=== PATIENT | female | born 1945 | race Caucasian/White ===

== ENCOUNTER 2018-10-28 18:30 | Inpatient (IN) ==
--- NOTE | 2018-10-28 19:06 | ED EKG INTERP ---
This chart was entered by Melida Jain Scribe, acting as scribe for Mayur Loo DO. EKG Interpretation - EKG Time of EKG reading by physician:: 18:51 EKG Read and Signed by:: Mayur Loo EKG Interpretation (*Must complete 3 of following elements*): Abnormal Rate: 75 Rhythm: Sinus w/ 1st degree AV block w/ occasional PVCs [place]: normal QRS: LVH (with repolarization abnormality), PVC's GA Interval: prolonged ST Wave: normal Attestation - Physician/ SANJUANA Attestation Patient care was provided by Advanced Practice Provider:: No The physician spent face to face time with patient:: Yes Advanced Practice Provider documentation review:: Supervising physician onsite and consulted in the evaluation and care of this patient. The physician did have a face to face encounter with the patient. This chart was documented by the indicated scribe, (Melida Jain Scribe) and accurately reflects the services I performed and decisions made by Eze garcia Thomas E., DO, as attested by the provider's signature.
[2018-10-28 19:11] LABS: BASO# 0.04 X1000 (0.0-0.2); BASO% 0.4 % (0.0-0.8); EOS# 0.07 X1000 (0.0-0.7); EOS% 0.7 % (0.0-10.0); HEMATOCRIT 42.1 % (37.0-47.0); HEMOGLOBIN 14.2 g/dL (12.0-16.0); LYMPH# 2.31 X1000 (1.2-3.4); LYMPH% 24.2 % (20.5-51.1); MCH 26.6 PG (27-31); MCHC 33.7 g/dL (33-37); MONO# 0.79 X1000 (0.11-0.59); MONO% 8.3 % (1.7-9.3); MPV 11.1 FL (7.4-10.4); NEUT# 6.32 X1000 (1.4-6.5); NEUT% 66.4 % (42.2-75.2); PLT 260 X1000 (130-400); RBC 5.33 XMIL (4.2-5.4); RDW 13.8 % (11.5-14.5); WBC 9.53 X1000 (4.8-10.8)
[2018-10-28 19:31] LABS: ALB/GLOB RATIO 1.2; ALBUMIN 4.6 g/dL (3.5-5.0); CALCIUM 11.1 mg/dL (8.8-10.2); CREATININE 1.6 mg/dL (0.5-0.9); TOTAL BILIRUBIN 0.33 mg/dL (0.20-1.00); TOTAL PROTEIN 8.5 g/dL (6.3-8.3)
[2018-10-28 19:40] LABS: POTASSIUM 2.4 mmol/L (3.5-5.1)
[2018-10-28] MEDS ORDERED: G.I. COCKTAIL PO ONE (20:34)
[2018-10-28] MEDS ORDERED: ZOFRAN IV ONE (20:34)
[2018-10-28] MEDS ORDERED: NS 500 ML IV ONE (20:34)
[2018-10-28 22:32] LABS: URINE SOURCE CLEAN CATCH
[2018-10-28] MEDS ORDERED: POTASSIUM CHLORIDE 20% LIQUID PO ONE (22:55)
[2018-10-28] MEDS ORDERED: POTASSIUM CHLORIDE 20 MEQ/SWI 20 MEQ/100 ML IVPB IV ONE (22:55)
[2018-10-28 23:22] LABS: BILIRUBIN URINE NEGATIVE (NEGATIVE); BLOOD URINE NEGATIVE (NEGATIVE); COLOR YELLOW; GLUCOSE URINE NEGATIVE (NEGATIVE); KETONE URINE NEGATIVE (NEGATIVE); LEUKOCYTES URINE NEGATIVE (NEGATIVE); NITRITE URINE NEGATIVE (NEGATIVE); PH URINE 5.5; PROTEIN URINE NEGATIVE (NEGATIVE); SP GRAVITY URINE 1.003; TURBIDITY URINE CLEAR (CLEAR); UR EPITHELIAL CELLS <10 /HPF (<10); URINE BACTERIA NEGATIVE /HPF; URINE RBC <10 /HPF (<10); URINE WBC <10 /HPF (<10); UROBILINOGEN URINE NORMAL (NORMAL)
--- NOTE | 2018-10-29 02:07 | PROVIDER DOCUMENTATION ---
This chart was entered by Melida Jain Scribe, acting as scribe for Dakota Decker MD. HPI-General Adult - General Chief Complaint: General Adult Stated Complaint: CAN'T EAT, BODY ACHES Time Seen by Provider: 10/28/18 20:13 Source: patient Allergies/Adverse Reactions: Patient Allergies Allergy/AdvReac Type Severity Reaction Status Date / Time No Known Allergies Allergy Verified 10/28/18 18:42 - History of Present Illness -Gen Adult Nature of Presenting Problems: 73 y/o female presents to ED with nausea, generalized abdominal pain, and loss of appetite. Pt reports she can't eat, but she wants to. Pt is alert and oriented. Location of Pain/Injury: reports: abdomen Pain Radiation: reports: no radiation Quality of Pain: reports: cramping Severity: reports: mild Onset/Duration: reports: unsure Timing: reports: improving Context/Activities at Onset: reports: none Modifying Factors: improves with: nothing Associated Symptoms: reports: loss of appetite, nausea, other (abdominal pain) Similar Symptoms Previously?: No Recently seen or treated by another doctor?: No Review of Systems - Adult - REVIEW OF SYSTEMS - ADULT Constitutional: denies: chills, fever Eyes: reports: no symptoms reported Ears, Nose, Mouth & Throat: reports: no symptoms reported Cardiovascular: denies: chest pain, palpitations Respiratory: denies: cough, shortness of breath Gastrointestinal: reports: abdominal pain, nausea, poor appetite. denies: diarrhea, vomiting Genitourinary: reports: no symptoms reported Musculoskeletal: denies: back pain, joint pain Integumentary: reports: no symptoms reported Neurological: denies: dizziness/vertigo, seizure Psychiatric: reports: no symptoms reported Endocrine: reports: no symptoms reported Hematologic/Lymphatic: reports: no symptoms reported Allergic/Immunologic: reports: no symptoms reported All Other Systems: Reviewed and Negative Past History - Adult - PAST MEDICAL HISTORY-ADULT Review of Records: reports: Old Records Reviewed, Nursing Assessment Review, Medications Reviewed Major Childhood Illnesses: reports: denies history - PRIOR SURGERIES/PROCEDURES Surgical/Procedure History: reports: none - IMMUNIZATION STATUS Childhood Immunizations: See Nurse Assessment Flu Vaccine: See Nurse Assessment - FAMILY HISTORY Family History: reviewed, not pertinent - SOCIAL HISTORY Smoking: non-smoker Substance Use: none/never Alcohol Use Frequency: never Living Situation: family Physical Exam-General - PHYSICAL EXAM-ADULT Initial Vital Signs Reviewed: Yes - CONSTITUTIONAL General Appearance: appears well, alert, no apparent distress - EYES Eyes: PERRL/EOMI, pink conjunctivae - HEAD, EARS, NOSE, MOUTH & THROAT HENMT: normocephalic/atraumatic, moist mucous membranes, normal ENT inspection - NECK Neck: non-tender, full range of motion - RESPIRATORY Respiratory: chest non-tender, lungs clear, normal breath sounds - CARDIOVASCULAR Cardiovascular: normal peripheral pulses, regular rate, rhythm - GASTROINTESTINAL (ABDOMEN) Abdominal Exam: normal bowel sounds, non tender, soft - MUSCULOSKELETAL Back Exam: normal inspection, no CVA tenderness Extremity: normal range of motion, non-tender, normal gait - SKIN Integumentary: normal color, warm/dry - NEUROLOGIC Neurologic: grossly normal - PSYCHIATRIC Psych/Mental Status: normal mood/affect, normal thought content, normal thought process Progress - PLAN OF CARE/RESULTS Progress/Plan/Lab Results: Vital Signs - 8 hr 10/28/18 18:38 Temperature 98.4 F Pulse Rate 78 Respiratory Rate 18 Blood Pressure 165/77 O2 Sat by Pulse Oximetry 95 Laboratory Results - last 24 hr 10/28/18 10/28/18 18:47 18:47 WBC 9.53 RBC 5.33 Hgb 14.2 Hct 42.1 MCV 79.0 L MCH 26.6 L MCHC 33.7 RDW Std Deviation 13.8 Plt Count 260 MPV 11.1 H Immature Gran % (Auto) 0.0 Neut % (Auto) 66.4 Lymph % (Auto) 24.2 Mellette % (Auto) 8.3 Eos % (Auto) 0.7 Baso % (Auto) 0.4 Immature Gran # (Auto) 0.00 Neut # (Auto) 6.32 Lymph # (Auto) 2.31 Mellette # (Auto) 0.79 H Eos # (Auto) 0.07 Baso # (Auto) 0.04 Sodium 141 Potassium 2.4 L* Chloride 88 L Carbon Dioxide 31 Anion Gap 22 BUN 47 H Creatinine 1.6 H Estimated GFR/1.73 m2 32 BUN/Creatinine Ratio 29 Glucose 171 H Calculated Osmolality 298 Calcium 11.1 H Total Bilirubin 0.33 AST 21 ALT 16 Alkaline Phosphatase 48 Total Protein 8.5 H Albumin 4.6 Globulin 3.9 Albumin/Globulin Ratio 1.2 Orders Category Date Time Status CBC WITH ELECTRONIC DIFF [HEME] Stat Lab 10/28/18 18:47 Completed COMPREHENSIVE METABOLIC PANEL [CHEM] Stat Lab 10/28/18 18:47 Completed URINALYSIS [URINALYSIS] Stat Lab 10/28/18 18:44 Uncollected Generalized Adult Illness >60 Stat Oth 10/28/18 18:43 Ordered EKG [EKG] Stat Ther 10/28/18 18:43 Ordered Result Diagrams: 10/28/18 18:47 10/28/18 18:47 - XRAY 1 XRAY Study: Chest Impression: See EMR Report - CONSULTS/PCP/HOSPITALIST Notification #1 *Consult/PCP/Hospitalist*: Hospitalist Time Discussed: 01:58 Consult Disposition: Admit Departure - Departure Date of Disposition Decision: 10/29/18 Time of Disposition Decision: 01:58 DIAGNOSIS: Hypoxia Disposition: ADMITTED INPATIENT 09 Certified Medical Emergency: Emergent Condition: Stable Referrals and Follow-Ups: Claude Valencia MD [Primary Care Provider] - - Critical Care Note This patient required my direct & personal management of CC.: No Attestation - Physician/ SANJUANA Attestation Patient care was provided by Advanced Practice Provider:: No The physician spent face to face time with patient:: Yes Advanced Practice Provider documentation review:: Supervising physician onsite and consulted in the evaluation and care of this patient. The physician did have a face to face encounter with the patient. This chart was documented by the indicated scribe, (Melida Jain Scribe) and accurately reflects the services I performed and decisions made by me, Dakota Decker MD, as attested by the provider's signature.
[2018-10-29] MEDS ORDERED: SODIUM CHLORIDE 0.9% INJ SCH (03:30)
[2018-10-29] MEDS ORDERED: PROTONIX IV SCH (03:30)
[2018-10-29] MEDS ORDERED: DUONEB (A & A) INH PRN (03:31)
[2018-10-29] MEDS ORDERED: ZOFRAN IV PRN (03:32)
[2018-10-29] MEDS: POTASSIUM CHLORIDE 20 MEQ/SWI 20 MEQ/100 ML IVPB IV SCH ×4 (04:27→16:23)
[2018-10-29] MEDS: NS 1,000 ML IV SCH (05:18)
--- NOTE | 2018-10-29 07:25 | Diag Imaging Result Doc PS360 ---
EXAM: CHEST-1 VIEW 10/28/2018 HISTORY: sob TECHNIQUE: AP portable at 1145 COMMENT: There is a calcified granuloma over the right base. The inspiration is suboptimal. There is apparent subsegmental atelectasis or fibrosis in both lung bases particularly in the left costophrenic angle region. IMPRESSION: Bibasilar atelectasis. Electronically signed by Roc Toledo 10/29/2018 7:23 AM
[2018-10-29 07:27] LABS: BASO# 0.03 X1000 (0.0-0.2); BASO% 0.4 % (0.0-0.8); EOS# 0.03 X1000 (0.0-0.7); EOS% 0.4 % (0.0-10.0); HEMATOCRIT 40.9 % (37.0-47.0); HEMOGLOBIN 13.5 g/dL (12.0-16.0); LYMPH# 2.13 X1000 (1.2-3.4); LYMPH% 27.5 % (20.5-51.1); MCH 26.7 PG (27-31); MCV 80.8 FL (81-99); MONO# 0.74 X1000 (0.11-0.59); MONO% 9.5 % (1.7-9.3); MPV 11.3 FL (7.4-10.4); NEUT# 4.82 X1000 (1.4-6.5); NEUT% 62.2 % (42.2-75.2); PLT 233 X1000 (130-400); RBC 5.06 XMIL (4.2-5.4); RDW 14.2 % (11.5-14.5); WBC 7.75 X1000 (4.8-10.8)
[2018-10-29 07:37] LABS: ALB/GLOB RATIO 1.2; ALBUMIN 4.2 g/dL (3.5-5.0); CALCIUM 10.3 mg/dL (8.8-10.2); CREATININE 1.4 mg/dL (0.5-0.9); POTASSIUM 2.9 mmol/L (3.5-5.1); TOTAL BILIRUBIN 0.27 mg/dL (0.20-1.00); TOTAL PROTEIN 7.7 g/dL (6.3-8.3)
--- NOTE | 2018-10-29 09:20 | HISTORY AND PHYSICAL ---
CHIEF COMPLAINT: Nausea, loss of appetite as well as abdominal pains. HISTORY OF PRESENT ILLNESS: Ms. Amelia Leslie is a 71-year-old female, who has a history of hypertension. She presents to the hospital because of nausea, abdominal pains with loss of appetite. She denies any diarrhea. She admits to having some constipation. No hematemesis or hematochezia. Lipase level drawn at the time of presentation was 38. She was noted to have a potassium level of 2.4 as she did receive some potassium in the ER. While in the ER, she was also noted to be hypoxic. She denies any shortness of breath or wheezing, but admits to having some cough. The patient has been placed on oxygen supplementation. Her D-dimer level is within acceptable limits. Patient will now be admitted to the floor for further management. PAST MEDICAL HISTORY: Notable for hypertension. SOCIAL HISTORY: No history of cigarette smoking. No alcohol or drug use. ALLERGIES: No known drug allergies. FAMILY HISTORY: Positive for hypertension. PAST SURGICAL HISTORY: She has had some form of gynecological surgery which she is not sure of name of procedure. REVIEW OF SYSTEMS: General: No fevers. AD OPERATIONS ASSOCIATE: She does have tremors. Headaches. Cardiovascular: No chest pain or palpitations. Respiratory: Cough. GI: As in history of present illness. : No dysuria. Psychiatric: No anxiety or depression. Hematology: No bleeding problems. Endocrine: No thyroid disease or diabetes. Allergy/Immunology: She does have some symptoms suggestive of allergic rhinitis. Dermatology: No skin lesions. PHYSICAL EXAMINATION: VITAL SIGNS: Temperature 98.4 degrees, pulse 78, respiratory rate 18, blood pressure 165/77, oxygen 95%. HEENT: She is atraumatic, normocephalic. She is anicteric. She has had tongue coated white. NECK: No lymphadenopathy or thyromegaly. CARDIOVASCULAR: S1, S2. RESPIRATORY: Evidence of good air entry bilaterally. ABDOMEN: Soft, nontender. No masses felt. EXTREMITIES: No evidence of edema. CENTRAL NERVOUS SYSTEM: No obvious focal deficits noted. The patient noted to have tremors. LABORATORY DATA: WBCs 9.53, hematocrit is 42.1 with a platelet count of 260,000. Sodium is 141, potassium 2.4, chloride 18, bicarb 31, BUN is 47, creatinine is 1.6, glucose is 171. Calcium level is 11.1. Total protein 8.5. ASSESSMENT AND PLAN: 1. Abdominal pain with nausea. Etiology not clear. We will maintain patient on proton pump inhibitor, antiemetics, as well as analgesic agent. We will obtain a CT scan of the abdomen and pelvis without contrast (patient does have impaired renal function). Consult with the Gastroenterology Team. 2. Hypoxic respiratory failure. Maintain patient on supplemental oxygen as well as nebulized bronchodilators. Follow up on chest CT. 3. Acute kidney injury. Maintain patient on intravenous fluids. Follow up on renal function. If the renal function remains impaired, we will need renal evaluation. 4. Tremors. Query etiology. Probably essential tremors. Consult with Neurology. 5. Hypertension. Maintain patient on antihypertensives. 6. Hyperglycemia. Check hemoglobin A1c level. 7. Hypercalcemia. Probably secondary to dehydration. Repeat calcium level following hydration. 8. Deep vein thrombosis prophylaxis. Sequential compression devices. 9. Gastrointestinal prophylaxis. PPI. cc: MD Claude Hicks MD MTDD
--- NOTE | 2018-10-29 09:30 | Diag Imaging Result Doc PS360 ---
EXAM: CT THORAX W/O CONTRAST 10/29/2018 HISTORY: sob TECHNIQUE: This exam was performed using automated exposure control, adjustment of mA or kV according to patient size, and/or use of iterative reconstruction technique. COMMENT: There is apical pleural thickening and fibrosis bilaterally. There is a calcified granuloma in the right lower lobe. There is some minimal platelike atelectasis versus fibrosis in the lung bases with air trapping. No pulmonary consolidation is demonstrated. There are calcified granulomatous nodes in the subcarina and right hilum. No abnormal fluid collections are present. There are granulomata in the liver and spleen. The liver is hypodense suggesting fatty change. There is an apparent gastric diverticulum adjacent to the spleen and left adrenal gland. There is scoliosis of the lower thoracic spine with convexity to the right. IMPRESSION: Atelectasis and/or fibrosis. Granulomatous changes. Hepatic steatosis. Electronically signed by Roc Toledo 10/29/2018 9:27 AM
--- NOTE | 2018-10-29 09:47 | Diag Imaging Result Doc PS360 ---
EXAM: CT ABDOMEN/PELVIS W/O CONTRAST 10/29/2018 HISTORY: abdominal pain TECHNIQUE: This exam was performed using automated exposure control, adjustment of mA or kV according to patient size, and/or use of iterative reconstruction technique. COMMENT: There are no previous abdominal studies available for comparison. There is evidence of minimal air trapping and atelectasis in the lung bases. There is a calcified granuloma in the right lower lobe. There is hepatic steatosis. There are granulomata in the liver and spleen. There is what appears to be a diverticulum arising from the fundus the stomach posteriorly and adjacent to the spleen. The adrenal glands are not enlarged. The pancreas is unremarkable. There is some stool throughout the colon. There is no evidence of nephrolithiasis or hydronephrosis. The appendix is normal in appearance. Pelvis: There is a fat-containing umbilical hernia. There is no evidence of free fluid. The urinary bladder is unremarkable. There are no adnexal masses. There is formed stool in the rectosigmoid colon. There has been internal fixation of the proximal right femur. There is rotoscoliosis of the lumbar spine with convexity to the right. No evidence of acute bony disease is present. IMPRESSION: Hepatic steatosis. Constipation. Gastric diverticulum. Electronically signed by Roc Toledo 10/29/2018 9:45 AM
[2018-10-29] MEDS: MEGACE LIQUID PO SCH (10:52)
--- NOTE | 2018-10-29 11:18 | PROGRESS NOTE ---
DATE: 10/29/2018 OBJECTIVE: Vital signs: Temperature 97.8 degrees, heart rate 76, respirations 16, blood pressure 117/72, O2 saturation on 3 L nasal oxygen of 96%. General: The patient is a 73-year-old white female admitted through the emergency room early this morning by hospitalist. Apparently her oxygen level was low, and she complained with inability to eat, and generalized weakness. LABORATORY AND IMAGING: Abdominal CT was done, but report is not complete. Chest x-ray showed small areas of atelectasis at the lung bases. Potassium was low at 2.4. ASSESSMENT AND PLAN: She was admitted for further evaluation and treatment and given some IV potassium in the emergency room. cc: Claude Valencia MD
--- NOTE | 2018-10-29 11:21 | PROGRESS NOTE ---
DATE: 10/29/2018 OBJECTIVE: Vital signs: Temperature 97.8 degrees, heart rate 76, respirations 16, blood pressure 117/72, O2 saturation 3 L nasal oxygen of 96%. SUBJECTIVE: The patient is a 73-year-old white female who was admitted through the emergency room by hospitalist early this morning with history of generalized weakness and inability to eat. She was found to be hypoxic and placed on oxygen. I did not see any O2 saturations that are hypoxic, but she is currently on 3 L nasal oxygen. Chest x-ray revealed small areas of atelectasis at the lung bases. CT of abdomen is not reported yet. Potassium was low at 2.4. She was given some IV potassium in the ER and more is ordered this morning. She did not feel like eating any breakfast this morning. She does not have any nausea, and has not vomited over the past few days. She has had no diarrhea or fever. Her symptoms may be solely on the basis of hypokalemia. This will be corrected and hopefully her appetite will improve. She will be ambulated as tolerated. cc: Claude Valencia MD
--- NOTE | 2018-10-29 15:45 | GASTROENTEROLOGY CONSULTATION ---
DATE: 10/29/2018 REASON FOR CONSULTATION: epigastric pain, poor appetite HPI: Ms. Amelia Leslie is a 71 year old woman with HTN, occasional GERD, OA, chronic venous stasis, HLD, tremor who presented with several days of epigastric "soreness" and cramping. She denies prior history of similar symptoms. It is non-radiating. No N/V/F, CP, SOB, rectal bleeding, melena, diarrhea, weight loss, or constipation. No sick contacts. She reports being started on HCTZ recently. She reports chronic dizziness at baseline. She was able to eat "a little" today and her abdominal pain has improved. She had a colonoscopy that was negative for polyps [address] Brito. Of note, patient is on high dose ibuprofen 800mg BID. 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 Constipation. Gastric diverticulum. ASSESSMENT AND PLAN: Ms. Amelia Leslie is a 71 year old woman with HTN, occasional GERD, OA, chronic venous stasis, HLD, tremor who presented with several days of epigastric "soreness" and cramping. She is on high dose NSAIDs. Labs only notable for hypokalemia likely from urinary losses from diuretics. #Abdominal pain: suspect gastritis/PUD/duodenitis from NSAID use vs hypokalemia - continue PPI once daily - avoid NSAIDs - advance diet as tolerated - may need diagnostic EGD if no improvement with avoiding NSAIDs #Hypokalemia: replete K #HTN: BP meds per primary #PETR: 2/2 to overdiuresis: IVFs per primary Thank you for this consult. Please call with questions cc: Claude Valencia MD MTDD
[2018-10-29] MEDS: NORCO-7.5 PO PRN (20:42)
[2018-10-30] MEDS: NS 1,000 ML IV SCH (04:47)
[2018-10-30] MEDS: PROTONIX PO SCH (06:33)
--- NOTE | 2018-10-30 07:56 | EKG Report ---
Test Performed on : 10/28/2018 6:51:20 PM Test Reason : general pain Blood Pressure : / mmHG Vent. Rate : 075 BPM Atrial Rate : 075 BPM P-R Int : 240 ms QRS Dur : 106 ms QT Int : 456 ms P-R-T Axes : 087 -02 024 degrees QTc Int : 509 ms Sinus rhythm. with 1st degree AV block. with occasional premature ventricular complexes. Left ventricular hypertrophy with repolarization abnormality Prolonged QT Abnormal ECG No previous ECGs available Unconfirmed Result
[2018-10-30 08:14] LABS: CALCIUM 8.7 mg/dL (8.8-10.2); MAGNESIUM 1.9 mg/dL (1.5-2.7)
[2018-10-30 08:15] LABS: POTASSIUM 2.7 mmol/L (3.5-5.1)
--- NOTE | 2018-10-30 08:29 | PROGRESS NOTE ---
DATE: 10/30/2018 OBJECTIVE: Vital signs: Stable with temperature 98.5 degrees, heart rate 66, respirations 17, blood pressure 110/92, O2 saturation on room air 95%. LABORATORY: Yesterday evening, potassium was 2.9, BUN 43, and creatinine 1.4. Lab this morning is pending. She is feeling better and feels that she may be able to eat breakfast this morning. NSAIDs were held at recommendation of Dr. Carson. ASSESSMENT AND PLAN: The patient will receive additional potassium IV and assistance will be given for her to ambulate. Hopefully, she can be discharged tomorrow. cc: Claude Valencia MD
[2018-10-30] MEDS: POTASSIUM CHLORIDE 20 MEQ/SWI 20 MEQ/100 ML IVPB IV SCH ×2 (09:03→13:11)
[2018-10-30] MEDS: KLOR-CON PO SCH ×2 (09:03→21:50)
[2018-10-30] MEDS: MEGACE LIQUID PO SCH (09:04)
[2018-10-30] MEDS: MIRALAX PO SCH (10:59)
--- NOTE | 2018-10-30 12:32 | GASTROENTEROLOGY PROGRESS NOTE ---
DATE: 10/30/2018 SUBJECTIVE: The patient is currently lying in bed. She continues to have abdominal pain in the epigastric region. She has poor appetite. She was taking ibuprofen twice daily until the day before admission. She denies any nausea, vomiting, vomiting blood. OBJECTIVE: Vital signs: Temperature 97.9 degrees, pulse of 60, respiratory rate 16, blood pressure 130/87, saturating 96% on room air. Body weight of 202 pounds 5 ounces. BMI of 32.7 kg. General: Ms. Leslie is lying in bed, in no acute distress. HEENT: No pallor. No icterus. Neck: Supple. Abdomen: Discomfort in the epigastrium. No rebound or guarding. Extremities: No cyanosis, clubbing. Neurologic: Alert, awake, and oriented. LABORATORY DATA: Her hemoglobin and hematocrit yesterday was 13.7 and 40.9, white count 7.75, platelet count of 233,000. Sodium 140, potassium 2.7, chloride 99, bicarb 30, anion gap 9, BUN of 22, creatinine 1, glucose of 108, calcium is 8.7, magnesium 1.9. CT scan on admission showed evidence of hepatic steatosis, constipation and gastric diverticulum. IMPRESSION AND PLAN: 1. Epigastric pain. We will schedule her for esophagogastroduodenoscopy tomorrow. The patient wants to get it done as an inpatient. The risks, benefits, indications, alternatives were discussed with the patient and all questions answered. I will continue proton pump inhibitors once daily. She will avoid any nonsteroidal anti-inflammatories. 2. Constipation. We will start on bowel regimen. 3. Acute kidney injury. Being monitored by primary team. 4. Reflux disease. She will continue to follow gastroesophageal reflux life changes. 5. Osteoarthritis, aware. 6. Chronic venous stasis, aware. 7. Hyperlipidemia, being managed primary team. Further recommendations to follow pending the hospital course. cc: MD Claude Tolentino MD MTDD
--- NOTE | 2018-10-30 14:51 | CONSULTATION ---
DATE OF CONSULTATION: 10/30/2018 Ms. Leslie is 73 years old and I have been asked to see her because of greater than 20 year history of tremor. She reports being told she had some shaking in childhood and teens. Tremor has been more prominent over the last 20 years. She sometimes has a sense of shaking on the inside more than recognizable visible shaking. She believes that she shakes equally in the right and left hands. Tremor does not generally interfere with handwriting or feeding. She does not sew, do other needle work or play a musical instrument. She reports she has not taken medication specifically to treat tremor. She has not noticed any of her current medicines to have any specific effect on tremor. She was admitted with nausea, abdominal pain, poor appetite. Home medicine list included mirtazapine, which she says is relatively recent, also simvastatin, raloxifene, KCl, oxybutynin, ibuprofen, hydrochlorothiazide, and furosemide, esomeprazole, Citracal plus D. She reports taking "nerve tablets" for "a few weeks" at some remote point, possibly more than 20 years ago. She did not notice any tremor changes then. She has not taken sleeping pills, hypnotics, sedatives, antipsychotics. I named some of these and she does not recognize these names. She used to drink a glass of wine occasionally and did not notice that to affect tremor. She has never had thyroid trouble. She drinks 3 cups of coffee most days and does not notice that to aggravate tremor. She has occasional cola, seldom tea. She reports no family history of tremor. She does not have children. She has a sister and brother living without tremor. She reports both parents and neither had tremor. She is certain she was not adopted. LABORATORY DATA: Workup here includes lab showing admission potassium 2.4 partially corrected to 2.7. BUN was 47 and improved to 28. Blood sugars have ranged 100s to 170s. Magnesium was normal at 1.9. Initial calcium was 11.1 and later 8.7. PHYSICAL EXAMINATION: She has been afebrile. Systolic blood pressures were initially 160s-180s, recently 110s-140s. On exam, she is awake, alert, attentive, and appropriate. Speech is not dysarthric. There is a quiver in her voice consistent with essential tremor. She has minimal shaking in the hands with action, sometimes best seen in postural suspension. She did well on [id number] testing bilaterally. There is no cogwheeling or rigidity. I did not see any resting tremor. There is no abnormal movement in the legs. Tone is symmetric. Power is good throughout. She has a slight deformity at the left wrist, which does not interfere with power. Plantar response is silent bilaterally. Reflexes are absent at the ankles, 2+ at knees and 1+ at the wrists symmetrically. She reports equal pinprick appreciation throughout. Proprioception is good at the great toe MTP joint bilaterally. I did not test her gait. Facial motility is diminished bilaterally, but symmetric. She has good facial expression. Gag is intact. Tongue is midline. She can hear. Extraocular movements are full including good upgaze for age. Visual sam are full tested grossly by confrontational finger counting. IMPRESSION: Mostly action tremor. The etiology is not certain, but this is likely essential tremor. Action tremor could be aggravated by caffeine, but she reports that is not the case. She could have a very subtle tardive dyskinesia related to prior neuroleptic use, but I do not see definite dyskinesia now. She told me the tremor seems to annoy her sister more than it does herself. In that case, we do not have to treat tremor. I told her that I would be available to see her as an outpatient if she decides to consider treating tremor later. Thanks for asking Neurology to see Ms. Leslie. cc: MD Claude Hsu III, MD MTDD
[2018-10-30] MEDS ORDERED: SALINE LOCK IV FLUID XX ONE (17:30)
[2018-10-30] MEDS ORDERED: DULCOLAX PR SCH (21:00)
[2018-10-30] MEDS: NORCO-7.5 PO PRN (22:03)
[2018-10-31] MEDS: PROTONIX PO SCH (06:40)
[2018-10-31] MEDS ORDERED: ZOFRAN ONE (07:29)
[2018-10-31] MEDS ORDERED: ROBINUL ONE ×2 (07:29→09:15)
[2018-10-31] MEDS ORDERED: XYLOCAINE-MPF 2% ONE (07:29)
[2018-10-31] MEDS ORDERED: DIPRIVAN 1% ONE (07:29)
[2018-10-31 07:51] LABS: AGAP 9; BUN 15 mg/dL (8-22); CALCIUM 8.1 mg/dL (8.8-10.2); CHLORIDE 107 mmol/L (98-107); COSMO 290; CREATININE 0.7 mg/dL (0.5-0.9); ESTIMATED GFR > 60; GLUCOSE 109 mg/dL (70-104); POTASSIUM 3.2 mmol/L (3.5-5.1); SODIUM 145 mmol/L (136-145); TCO2 29 mmol/L (25-35)
[2018-10-31] MEDS ORDERED: FENTANYL ONE (09:15)
--- NOTE | 2018-10-31 09:22 | PROGRESS NOTE ---
DATE: 10/31/2018 Vital signs stable with temperature 97.9 degrees, heart rate 55, respirations 18, blood pressure 147/63, and O2 saturation on room air 98%. The patient is feeling well. She rested well last night. Plans are for EGD this morning. She was eating well yesterday. She states she is hungry this morning, but will need to wait until after her procedure to eat. BMP is not reported yet. Hopefully, patient can go home later today. cc: Claude Valencia MD
[2018-10-31] MEDS: MIRALAX PO SCH (09:42)
[2018-10-31] MEDS: KLOR-CON PO SCH (09:42)
[2018-10-31] MEDS: MEGACE LIQUID PO SCH (09:42)
--- NOTE | 2018-10-31 14:33 | OPERATIVE NOTE ---
PROCEDURE DATE: 10/31/2018 PROCEDURE PERFORMED: Upper gastrointestinal endoscopy. PROVIDER: Chemo Carson M.D. INDICATIONS: Epigastric pains, poor appetite. MEDICATIONS: Monitored anesthesia care. DESCRIPTION OF PROCEDURE: Prior to procedure, history and physical was performed. The patient's allergies and medication were reviewed. The patient's tolerance to previous anesthesia was also reviewed. The risks and benefits of the procedure and sedation options and risks were discussed with the patient. All questions were answered. Informed consent was obtained. After reviewing the risks and benefits, the patient was deemed in satisfactory condition to undergo the procedure. The endoscope was passed under direct visualization. Throughout the procedure, the patient's blood pressure, pulse, and oxygen saturation were monitored continuously. The endoscope was introduced through the mouth, and advanced to the second part of the duodenum. The upper GI endoscopy was accomplished without difficulty. The patient tolerated the procedure well. COMPLICATIONS: No immediate complications. ESTIMATED BLOOD LOSS: Minimal. FINDINGS: The esophagus was normal with Z-line located at 40 cm from the incisors. Within the stomach, there was mild gastritis in the gastric body that was localized. Random gastric biopsies were obtained to rule out Helicobacter pylori. Retroflexion in the stomach showed a small paraesophageal hernia. The bulb and second portion of the duodenum were normal. Small paraesophageal hernia, minimal gastritis, biopsied to rule out Helicobacter pylori. RECOMMENDATIONS: Await pathology results. Transition PPI to once daily. Minimize NSAIDs. Advance diet as tolerated. The patient can be discharged from a GI perspective. Please call with any questions or concerns. cc: Claude Valencia MD MTDD
[2018-10-31 15:32] VITALS: BP 134/66
--- NOTE | 2018-11-01 14:11 | DISCHARGE SUMMARY ---
ADMISSION DATE: 10/29/2018 DISCHARGE DATE: 10/31/2018 CHIEF COMPLAINT: Nausea, abdominal pain, and loss of appetite. She denied diarrhea or fever. On evaluation in the emergency room, she had a cough and some wheezing and was placed on oxygen. Lipase on presentation was 38. She had a low potassium level of 2.4. She had been given hydrochlorothiazide recently for hypertension, and was taking potassium chloride 10 mEq at home, but had a drop in her potassium despite this. She stated she had eaten very little for 2 or 3 days. She was having no cramping of her legs. She was admitted for further evaluation and treatment. INITIAL LABORATORY: Hemoglobin 14.2, hematocrit 42.1, white blood count 9500 with 66% neutrophils. Sodium was 141, potassium 2.4, BUN 47, creatinine 1.6, glucose 171, calcium 11.1, total protein 8.5, and lipase 38. HOSPITAL COURSE: She was placed on Protonix b.i.d. and Zofran. Potassium was given IV NPO. By 5:19 in the evening, potassium was 2.9. Her appetite quickly improved with correction of hypokalemia. She has been eating well for [address] Dye was consulted related to her GI complaints. EGD was done this morning revealing mild gastritis, and small esophageal hernia. Some random biopsies were taken to rule out H. Pylori. Procedure was done by Dr. Carson. Pathology is pending. She is discharged home on her usual medicines plus KCl 20 mEq b.i.d., and Protonix 40 mg 1 daily. Ibuprofen is discontinued and she is to take Tylenol p.r.n. pain. She is to return to the office Tuesday after , and will have BMP that morning. Final diagnoses include anorexia related to hypokalemia, mild gastritis, most likely related to ibuprofen, dyspnea, and diabetes. She has not required oxygen for a couple of days and O2 sats have been 98 today on room air. Additional laboratory revealed proBNP 135 and troponin T less than 0.01. Follow-up evaluation in the office will be Tuesday. cc: Claude Valencia MD
== END 2018-10-31 17:34 | disposition home or self-care (01) | DRG 641 ==
LOC: ED 18:30 → 3N 10-29 04:47 → SUATTDRO 10-29 04:47 → 3N 10-31 11:51
PROVIDERS: ADMIT Family Medicine; ATTEND Family Medicine
CPT/HCPCS: 71010; 71045; 71250; 74176; 80048; 80053; 81001; 82330; 83036; 83690; 83735; 83880; 84484; 85025; 85379; 88305; 88312; 93005; 96361; 96365; 96366; 96375; 99285; A9270; C9113; J2405; J3010; J3480; J7030; J7040; S0164; S0179